=== PATIENT | male | born 1935 | race Caucasian/White ===

== ENCOUNTER 2023-12-23 22:03 | Emergency (ER) | payer MEDICARE, OTHER, SELFPAY ==
[2023-12-23 22:07] VITALS: BP 155/104; BMI 26.5
[2023-12-23 22:41] LABS: Urine Albumin 3+ (Neg - Trace); Urine Bilirubin Negative (Negative); Urine Character Very Cloudy (Clear); Urine Color Brown; Urine Glucose Negative (Negative); Urine Ketone Trace (Negative); Urine Leukocyte 1+ (Negative); Urine Nitrite Positive (Negative); Urine Occult Blood 4+ (Negative); Urine Urobilinogen 1+ (Neg - 1+)
[2023-12-23 22:48] LABS: Urine Red Blood Cell >100 /HPF (0-2)
--- NOTE | 2023-12-23 23:30 | ED.GENMED ---
Addendum entered and electronically signed by Ender Van PA-C 12/28/23 07:37:
Urine culture demonstrates 100,000 colony-forming units of Staphylococcus epidermidis as well as Aerococcus species. Patient placed on cefuroxime. This was not tested in the sensitivities however I spoke with the patient and he has no complaints
of flank pain fever nausea vomiting his catheter is draining well. No indication for any changes advised that he finish the antibiotics that were prescribed.
Original Note:
History of Present Illness
General
Chief Complaint: Male Genito-Urinary Symptoms
Source: patient
Time Seen by Provider: 12/23/23 22:20
Travel History
Have you had any contact with someone who has COVID-19?: No
Do you have any symptoms of coronavirus? Fever > 100 degrees, chills, cough, shortness of breath, sore throat, loss of taste or smell, muscle aches, or headache?: No
History of Present Illness
History of Present Illness:
88-year-old male who has a chronic indwelling Kelley catheter who presents after had not been draining and has a lower abdominal pain. Patient states he has only had the catheter in for a few weeks. No fevers or vomiting. No other complaints.
Past History
Past History
ED Past Medical History: Other (BPH, urinary retention, constipation, GERD, Cheatham syndrome)
Phy Exam
Physical Exam
Physical Exam:
CONSTITUTIONAL Vital signs reviewed, Patient alert and oriented to person, place and time. Well-appearing
HEAD atraumatic, normocephalic.
EYES eyelids normal to inspection, Extraocular muscles intact, Conjunctiva normal, Sclera normal.
NECK normal range of motion, Trachea midline, no jugular venous distention.
RESP no respiratory distress
BACK No obvious deformities
Abdomen mild suprapubic tenderness
Kelley catheter in place with cloudy urine noted
UPPER EXTREMITY Gross Range of motion normal, gross motor strength normal
LOWER EXTREMITY Gross range of motion normal, Gross motor strength normal
NEURO Speech normal, No focal motor deficits include, Ole coma scale 15, Memory normal, Cranial Nerves intact to screening exam.
SKIN Skin warm, dry, and normal in color.
PSYCHIATRIC Patient oriented to person place and time, Normal affect.
Course
Orders/Labs/Results
Orders:
Orders
12/23/23 22:30
Urinalysis Reflex To Culture Urgent
Date Specimen was Collected: 12/23/23
Time Specimen was Collected: :
Urine Microscopic Reflex Cult Urgent
Urine Culture Urgent
YUDY Source: U
Specimen Description:
Date Specimen was Collected: 12/23/23
Time Specimen was Collected: :
Abnormal Lab Results
12/23/23
22:30
Urine Ketones Trace A
(Negative)
Ur Occult Blood Reflex 4+ A
(Negative)
Urine Nitrite (Reflex) Positive A
(Negative)
Leukocyte Esterase Rfl 1+ A
(Negative)
Urine RBC >100 A /HPF
(0-2)
Urine Albumin (Reflex) 3+ A
(Neg - Trace)
Vital Signs
Initial and Last Documented VS:
Initial Vital Signs
Temp Pulse Resp BP Pulse Ox
99 F 68 18 155/104 97
12/23/23 22:07 12/23/23 22:07 12/23/23 22:07 12/23/23 22:07 12/23/23 22:07
Last Documented Vital Signs
Temp Pulse Resp BP Pulse Ox
99 F 65 18 163/71 98
12/23/23 22:07 12/23/23 23:34 12/23/23 23:34 12/23/23 23:34 12/23/23 23:34
MDM/Problems Addressed
MDM/Problems Addressed:
Urinary tract infection, urinary retention, chronic indwelling Kelley catheter
*Pulse Oximetry
Patient hypoxic: no
*Critical Care Note
Total Time (30-74mins, 75-104mins- exclusive of procedures): Not Applicable
Data Reviewed
Source: patient
Further Testing Considered But Not Given:
Consider labs the patient feels much improved all symptoms resolved after Kelley catheter was exchanged
Patient Management
Escalation/DeEscalation of care consider admission/obs:
Initially flushed and Kelley catheter was draining well but in light of infection Kelley catheter was changed down antibiotics initiated. Okay for outpatient follow-up.
ED Attending Note
-
Portions of this chart may have been created with voice recognition software.� Occasional wrong word or��sound alike� substitutions may have occurred due to the inherent limitations of voice recognition software.
Discharge Plan
Departure
Patient Disposition: Home (Routine Discharge)
Date of Disposition: 12/23/23
Time of Disposition: 23:30
Patient with high blood pressure during this ER visit?: Yes
Discharge Problem:
Acute UTI, Acute urinary retention
Instructions: How to Care for Your Kelley Catheter, Male, Urinary Retention (DC), Urinary Tract Infection, Adult ED, BLOOD PRESSURE
Prescriptions:
New
cefuroxime axetil 500 mg tablet
500 mg PO BID 10 Days Qty: 20 0RF
No Action
tamsulosin 0.4 mg Capsule
0.4 mg PO DAILY
escitalopram oxalate 10 mg Tablet
10 mg PO DAILY
polyethylene glycol 3350 [LaxaClear] 17 gram/dose Powder
4 g PO DAILY PRN (Reason: constipation)
Referrals:
Nilton Edwards MD [Family Provider] -
Activity Restrictions/Additional Instructions:
Return immediately for vomiting, fevers, abdominal pain, weakness of any kind or any other concerns. Please see your doctor in the next 3 to 5 days for follow-up and reevaluation.
Interventions
Interventions:
*Risk Screen - Suicide Last Done: 12/23/23 22:09
*General Assessment Last Done: 12/23/23 22:09
*Neglect/Abuse Screening Last Done: 12/23/23 22:09
ED- Fall Risk Assessment Last Done: 12/24/23 00:34
*ED COVID-19 Vaccine History Last Done: 12/23/23 22:09
*Nursing Disposition Last Done: 12/24/23 00:34
ED-Male Genitourinary Assessment Last Done: 12/23/23 22:45
Discharge Date and Time
Discharge Date/Time: 12/24/23 00:34
Print Language: BELIZEAN
[2023-12-23 23:34] VITALS: BP 163/71
== END 2023-12-24 00:34 | disposition home or self-care (01) ==
LOC: EMR 22:03
PROVIDERS: EMERGENCY PHYSICIAN Emergency Medicine; FAMILY PHYSICIAN Urology; OTHER PHYSICIAN Family Medicine
DX: N39.0 Urinary tract infection, site not specified (principal); N40.1 Benign prostatic hyperplasia with lower urinary tract symptoms; R33.9 Retention of urine, unspecified; R10.30 Lower abdominal pain, unspecified; K21.9 Gastro-esophageal reflux disease without esophagitis; Z15.09 Genetic susceptibility to other malignant neoplasm
CPT/HCPCS: 99284; 51702; 51798; 81003; 81015; 87077; 87086; 87147; 87186